=== PATIENT | male | born 1935 | race Caucasian/White ===

== ENCOUNTER → 2017-03-27 | Outpatient (CLI) | payer MEDICARE, OTHER ==
[~2017-03-27] MED LIST: ACE325 PO; AML5 PO; ASCO-178 PO; AZIT-1 PO; CYAN1TAB68 PO; EZET1TAB19 PO; EZET1TAB61 PO; FURO-47 PO; GLUC750T10 PO; HYDR12.561 PO; MULT-1335 PO; PRED20TA6 PO; PROP80TA25 PO; ZINC50TA PO; [UNRECOGNIZED DRUG - CODE] PO; [UNRECOGNIZED DRUG - OTHER] PO
[2017-03-27 14:46] LABS: PLATELET COUNT, AUTOMATED 226 K/uL (150-450)
--- NOTE | 2017-03-27 14:56 | RADIOLOGY IMAGING REPORT ---
FACILITY: [facility] - [place] PATIENT NAME: Chirag Cuello : 1935 MR: [id number] V: [id number] EXAM DATE: ORDERING PHYSICIAN: TERESITA SADLER TECHNOLOGIST: Location: [facility] [place] Patient: Chirag Cuello : 1935 Visit/Account:[id number] Date of Sevice: 03/27/2017 Exam type: CHEST PA AND LAT History: Cough, shortness of breath since Saturday Comparison: None. Findings: There is coarse peribronchial thickening bilaterally. This is particularly prominent in the lower lo bes. No lobar infiltrates are identified. There is no evidence of pleural effusions or overt primar y edema. There is flattening the hemidiaphragms which can be seen with COPD The cardiac silhouette i s normal in size. The left shoulder arthroplasty and moderate spondylotic changes of the thoracic sp ine IMPRESSION: 1. There is coarse peribronchial thickening bilaterally particular prominent in the lower lobes. Th is could represent an acute peribronchial inflammatory process given the clinical history although di fferential diagnosis would include chronic changes as are no prior studies available for comparison Flattening of hemidiaphragms which can be seen with COPD Report Dictated By: Wendy Zimmer MD at 03/27/2017 2:49 PM Report E-Signed By: Wendy Zimmer MD at 03/27/2017 2:51 PM WSN:[email or web address]
== END ==
LOC: LAB 14:25
PROVIDERS: ATTEND Nurse Practitioner Primary Care
DX: R91.8 Other nonspecific abnormal finding of lung field (principal); Z96.612 Presence of left artificial shoulder joint; M47.9 Spondylosis, unspecified; J98.6 Disorders of diaphragm; R05 Cough
CPT/HCPCS: 36415; 71046; 85025

== ENCOUNTER 2017-07-18 14:46 | Emergency (ER) | payer MEDICARE, OTHER ==
--- NOTE | 2017-07-18 14:56 | ER Report ---
History and Physical Time Seen By MD: 14:55 Hx. of Stated Complaint: CUT LEFT THUMB WITH TABLE SAW. HPI/ROS CHIEF COMPLAINT: Left thumb laceration HISTORY OF PRESENT ILLNESS: 81-year-old male patient presents to emergency room with complaint of left thumb laceration. Patient states he was cutting wood using a table saw when his hand slipped, he states he felt that the thumb hit the table of the saw. Patient states that he was using a ripping saw at the time , and at that time was only approximately 1/8 of an inch above the table. He denies any numbness tingling. He states he is able to move his thumb without any difficulties. He is unsure of his last tetanus shot. REVIEW OF SYSTEMS: Respiratory: No cough, no dyspnea. Cardiovascular: No chest pain, no palpitations. Gastrointestinal: No vomiting, no abdominal pain. Musculoskeletal: No back pain. Allergies: Coded Allergies: meperidine (Verified Allergy, Unknown, 07/18/17) Home Meds Active Scripts Cephalexin 500 Mg Tab (KEFLEX 500 MG TAB) 500 Mg Tablet, 500 MG PO Q6H, #20 TAB Prov:BRITTNI CABALLERO [facility] 07/18/17 Prednisone (PREDNISONE) 20 Mg Tablet, 1 TAB PO BID for 5 Days, #10 TAB 0 Refills Prov:TERESITA SADLER DNP, [facility]- 03/27/17 Azithromycin (ZITHROMAX) 250 Mg Tablet, 0 PO QDAY, #6 TAB 0 Refills TAKE 2 TABLETS ON DAY 1 AND 1 TABLET ON DAYS 2-5 Prov:TERESITA SADLER DNP [facility]- 03/27/17 Reported Medications Ezetimibe/Simvastatin (Ezetimibe-Simvastatin 10-40 mg) 10 Mg-40 Mg Tablet, 1 TAB PO QDAY 03/27/17 Hydrochlorothiazide (HYDROCHLOROTHIAZIDE) 12.5 Mg Tablet, 1 TAB PO QDAY, TAB 03/27/17 Cyanocobalamin/Folic Acid (VITAMIN R97-NPANC ACID TABLET) 1 Each Tablet, 1 EACH PO QDAY 03/27/17 Furosemide (FUROSEMIDE) 40 Mg Tablet, 1 TAB PO QDAY, TAB 03/27/17 Amlodipine/Valsartan (EXFORGE 10-320 MG TABLET) 1 Each Tablet, 1 EACH PO 03/27/17 Propranolol Hcl (PROPRANOLOL HCL) 80 Mg Tablet, 80 MG PO DAILY 03/27/17 Multivitamins W-Minerals (Multiple Vitamin) 1 Tab Tablet, 1 TAB PO DAILY 12/03/06 Ascorbic Acid (Vitamin C) 1,000 Mg Tablet, 500 MG PO DAILY 12/03/06 Zinc (Natural Zinc) 50 Mg Tablet, 50 MG PO DAILY 12/03/06 [Trophandil] No Conflict Check, MG PO BID 12/03/06 Past Medical/Surgical History Patient has a past medical history of hypertension. Patient has surgical history of colectomy. Reviewed Nurses Notes: Yes Smoking Status: Former Smoker Constitutional Vital Sign - Last 24 Hours 07/18/17 07/18/17 14:50 15:55 Temp 97.8 Pulse 60 86 Resp 18 18 B/P (MAP) 139/77 132/68 (89) Pulse Ox 89 94 O2 Delivery Room Air Room Air Physical Exam General Appearance: The patient is alert, has no immediate need for airway protection and no current signs of toxicity. Respiratory: Chest is non tender, lungs are clear to auscultation. Cardiac: regular rate and rhythm Gastrointestinal: Abdomen is soft and non tender, no masses, bowel sounds normal. Musculoskeletal: Neck: Neck is supple and non tender. Extremities have full range of motion and are non tender. Skin: No rashes or lesions. Patient has a 4.5 cm laceration to the left thumb, it does go into this subcutaneous tissue. No obvious tendon or ligamentous injury. DIFFERENTIAL DIAGNOSIS: After history and physical exam differential diagnosis was considered for laceration, fracture, open fracture. Medical Decision Making EKG/Imaging Imaging FINGER LEFT THUMB HISTORY: cut in table saw Additional history: None COMPARISON: None. FINDINGS: There is a small shallow defect seen in the ventral skin surface of the left thumb consistent with history of. The underlying bone appears intact. There are no radiopaque foreign bodies identified. Underlying osteoarthritic changes are incidentally noted along the first ray and first carpometacarpal joint. IMPRESSION: Soft tissue laceration of the thumb without evidence of underlying bone involvement or radiopaque foreign bodies. Report Dictated By: Jeramie Kuhn MD at 07/18/2017 3:18 PM Report E-Signed By: Jeramie Kuhn MD at 07/18/2017 3:22 PM ED Course/Re-evaluation ED Course Patient was admitted exam room, history and physical obtained. Differential diagnoses were considered. I examination patient has a 4.5 centimeter laceration to the palmar aspect of the left thumb. There does not appear to be any bony involvement or any tendon injury. X-rays done of the left thumb which showed no acute fractures. I discussed the findings with the patient. The thumb was anesthetized, cleaned and repaired described below. We'll go ahead and discharge patient home at this time. We will place him on antibiotics to help prevent infection especially with this being considered a dirty wound. I discussed the patient who verbalized understanding and agreement. He is to follow-up with his primary care provider in 7-10 days to have sutures removed. He is to monitor for signs of infection. Procedure: Laceration repair. Verbal consent was obtained from the patient. The 4.5 cm laceration on the palmar aspect of the left thumb was anesthetized in the usual fashion. The wound was scrubbed, draped and explored to its base with a gloved finger. There were no deep structures involved. No tendon injury was identified. The wound was repaired with 9 simple interrupted sutures using 5-0 Prolene material. The wound repair was simple. The procedure was performed by myself. Decision to Disposition Date: Jul 18, 2017 Decision to Disposition Time: 15:51 Depart Departure Latest Vital Signs Vital Signs Date Time Temp Pulse Resp B/P (MAP) Pulse Ox O2 Delivery O2 Flow Rate FiO2 07/18/17 15:55 86 18 132/68 (89) 94 Room Air 07/18/17 14:50 97.8 Impression: Primary Impression: Laceration Condition: Improved Disposition: HOME OR SELF-CARE New Scripts Cephalexin 500 Mg Tab (KEFLEX 500 MG TAB) 500 Mg Tablet 500 MG PO Q6H, #20 TAB Prov: BRITTNI CABALLERO 07/18/17 Patient Instructions: Finger Laceration (ED) Additional Instructions: Keep wound dry for 48 hours. Follow up with your primary care provider in the next 7-10 days to have sutures removed. Monitor for signs of infection; redness, swelling, heat, discharge, increasing pain or red streaking. Take Tylenol or Ibuprofen as needed for pain. Return to the ER with any concerns. You may change dressing as needed. BRITTNI CABALLERO Jul 18, 2017 14:56
[2017-07-18] MEDS ORDERED: DIPHTH/TETANUS/ACEL. PERTUSSIS IM ONLY ONE (15:10)
--- NOTE | 2017-07-18 15:26 | RADIOLOGY IMAGING REPORT ---
FACILITY: PATIENT NAME: Chirag Cuello : 1935 MR: [id number] V: [id number] EXAM DATE: ORDERING PHYSICIAN: BRITTNI CABALLERO TECHNOLOGIST: Location: [facility] - [place], [place] Patient: Chirag Cuello : 1935 Visit/Account:[id number] Date of Sevice: 07/18/2017 FINGER LEFT THUMB HISTORY: cut in table saw Additional history: None COMPARISON: None. FINDINGS: There is a small shallow defect seen in the ventral skin surface of the left thumb consistent with hi story of. The underlying bone appears intact. There are no radiopaque foreign bodies identified. U nderlying osteoarthritic changes are incidentally noted along the first ray and first carpometacarpal joint. IMPRESSION: Soft tissue laceration of the thumb without evidence of underlying bone involvement or radiopaque for eign bodies. Report Dictated By: Jeramie Kuhn MD at 07/18/2017 3:18 PM Report E-Signed By: Jeramie Kuhn MD at 07/18/2017 3:22 PM WSN:SALMA
[2017-07-18] MEDS ORDERED: CEPH500T7 PO (15:51)
[2017-07-18 15:55] VITALS: BP 132/68
== END 2017-07-18 16:00 | disposition home or self-care (01) ==
LOC: ER 15:09
DX: S61.012A Laceration without foreign body of left thumb without damage to nail, initial encounter (principal)
CPT/HCPCS: 90471; 90715; 99283

== ENCOUNTER → 2017-10-01 | Outpatient (CLI) | payer MEDICARE, OTHER ==
[~2017-10-01] MED LIST changes: +CEPH500T7 PO
[2017-10-01 11:18] LABS: PLATELET COUNT, AUTOMATED 256 K/uL (150-450)
== END ==
LOC: LAB 11:07
PROVIDERS: ATTEND Orthopaedic Surgery Hand Surgery
DX: M79.89 Other specified soft tissue disorders (principal); M79.605 Pain in left leg
CPT/HCPCS: 36415; 84550; 85025; 85651; 86140

== ENCOUNTER 2018-03-20 16:18 | Emergency (ER) | payer MEDICARE, OTHER ==
[2018-03-20] MEDS ORDERED: VALS320T12 PO (16:32)
[2018-03-20] MEDS ORDERED: EZET1TAB86 PO (16:32)
[2018-03-20] MEDS ORDERED: TOPI-23 PO (16:35)
--- NOTE | 2018-03-20 16:35 | ER Report ---
History and Physical Time Seen By MD: 16:33 Hx. of Stated Complaint: HIGH BLOOD PRESSURE AT HOME - REPORTS ASYMPTOMATIC. HPI/ROS CHIEF COMPLAINT: Hypertension HISTORY OF PRESENT ILLNESS: This is an 82-year-old male presents to the emergency department with his daughter, for hypertension. The patient states that he was at the grocery store today, checked his blood pressure and noted that it was 190 systolic, he was asymptomatic, became concerned and decided to come in for further evaluation. Patient also states that Sanders he did become somewhat lightheaded with positional changes that did resolve rather quickly, he states that he did begin to increase his water intake, the lightheadedness is diminishing. Patient's initial blood pressure was 143/76, heart rate in the low 50s. Patient denies chest pain, shortness of breath, no headaches, no visual disturbances no other complaints. REVIEW OF SYSTEMS: Respiratory: No cough, no dyspnea. Cardiovascular: As above. Gastrointestinal: No vomiting, no abdominal pain. Musculoskeletal: No back pain. Neurological: As above. Allergies: Coded Allergies: meperidine (Verified Allergy, Unknown, 07/18/17) Home Meds Reported Medications Topiramate (TOPIRAMATE) 25 Mg Tablet, 25 MG PO BID 03/20/18 Valsartan (DIOVAN) 320 Mg Tablet, 320 MG PO QDAY 03/20/18 Ezetimibe/Simvastatin (VYTORIN 10-40 MG TABLET) 1 Each Tablet, 1 EACH PO QDAY 03/20/18 Ezetimibe/Simvastatin (Ezetimibe-Simvastatin 10-40 mg) 10 Mg-40 Mg Tablet, 1 TAB PO QDAY 03/27/17 Hydrochlorothiazide (HYDROCHLOROTHIAZIDE) 12.5 Mg Tablet, 1 TAB PO QDAY, TAB 03/27/17 Cyanocobalamin/Folic Acid (VITAMIN D70-GARFY ACID TABLET) 1 Each Tablet, 1 EACH PO QDAY 03/27/17 Furosemide (FUROSEMIDE) 40 Mg Tablet, 1 TAB PO QDAY, TAB 03/27/17 Amlodipine/Valsartan (EXFORGE 10-320 MG TABLET) 1 Each Tablet, 1 EACH PO 03/27/17 Propranolol Hcl (PROPRANOLOL HCL) 80 Mg Tablet, 80 MG PO BID 03/27/17 Discontinued Reported Medications Multivitamins W-Minerals (Multiple Vitamin) 1 Tab Tablet, 1 TAB PO DAILY 12/03/06 Ascorbic Acid (Vitamin C) 1,000 Mg Tablet, 500 MG PO DAILY 12/03/06 Zinc (Natural Zinc) 50 Mg Tablet, 50 MG PO DAILY 12/03/06 [Trophandil] No Conflict Check, MG PO BID 12/03/06 Discontinued Scripts Cephalexin 500 Mg Tab (KEFLEX 500 MG TAB) 500 Mg Tablet, 500 MG PO Q6H, #20 TAB Prov:BRITTNI CABALLERO [facility] 07/18/17 Prednisone (PREDNISONE) 20 Mg Tablet, 1 TAB PO BID for 5 Days, #10 TAB 0 Refills Prov:TERESITA SADLER [facility]- 03/27/17 Azithromycin (ZITHROMAX) 250 Mg Tablet, 0 PO QDAY, #6 TAB 0 Refills TAKE 2 TABLETS ON DAY 1 AND 1 TABLET ON DAYS 2-5 Prov:TERESITA SADLER [facility]- 03/27/17 Past Medical/Surgical History The patient has a past medical and surgical history of hypertension, wears glasses, colectomy. Reviewed Nurses Notes: Yes Smoking Status: Former Smoker Constitutional Vital Sign - Last 24 Hours 03/20/18 03/20/18 03/20/18 03/20/18 16:21 16:25 17:00 17:30 Temp 97.3 Pulse 55 52 49 Resp 20 B/P (MAP) 159/82 159/82 (107) 143/76 (98) Pulse Ox 92 90 90 O2 Delivery Room Air 03/20/18 03/20/18 03/20/18 03/20/18 17:36 17:39 17:41 17:50 B/P (MAP) 130/67 (88) 116/88 (97) 115/75 (88) 130/67 (88) 116/88 (97) 115/75 (88) Physical Exam General Appearance: The patient is alert, has no immediate need for airway protection and no current signs of toxicity. Eyes: Pupils equal and round no injection. Respiratory: Chest is non tender, lungs are clear to auscultation. Cardiac: regular rate and rhythm, no murmurs, clicks or rubs. Gastrointestinal: Abdomen is soft and non tender, no masses, bowel sounds normal. Musculoskeletal: Neck: Neck is supple and non tender. Extremities have full range of motion and are non tender. Skin: No rashes or lesions. DIFFERENTIAL DIAGNOSIS: After history and physical exam differential diagnosis was considered for orthostatic hypotension, hypertension, bradycardia and sy ncope. Medical Decision Making EKG/Imaging EKG Interpretation 12 lead EKG: Time of EKG 1726. Rhythm: Sinus bradycardia, ventricular rate 48 bpm. [place]: normal QRS: normal ST segments: No ST depression or elevation identified. Poor T-wave progression noted in V2 through V6. No previous EKGs for comparison. ED Course/Re-evaluation ED Course The patient was admitted to room. A history and physical were obtained. Differential diagnoses were considered. As the patient was asymptomatic, primarily wanting his blood pressure evaluated, he was noted to have a blood pressure in the 140s over 80s in the emergency department, I did an EKG as he states he's had some lightheadedness over the last couple of days transient typically with positional changes, he is bradycardic, they've noted this at home. Patient has also started to increase his water intake over the last 1-2 days, he states this is helped with some of the lightheadedness as well as his overall well-being. I did orthostatic vital signs, his blood pressure did drop however he was not symptomatic at that time. I suspect that his lightheadedness is secondary to orthostatic hypotension. As he has been bradycardic I did recommend following up with his primary care provider within the next 1-2 weeks for reevaluation and possible adjustment on his blood pressure medications. Patient and his daughter both expressed understanding and the patient was discharged home. Decision to Disposition Date: Mar 20, 2018 Decision to Disposition Time: 17:54 Depart Departure Latest Vital Signs Vital Signs Date Time Temp Pulse Resp B/P (MAP) Pulse Ox O2 Delivery O2 Flow Rate FiO2 03/20/18 17:50 130/67 (88) 116/88 (97) 115/75 (88) 03/20/18 17:30 49 90 03/20/18 16:21 97.3 20 Room Air Impression: Primary Impression: Hypertension Additional Impression: Orthostatic hypotension Condition: Improved Disposition: HOME OR SELF-CARE Patient Instructions: Chronic Hypertension (ED) Additional Instructions: No concerning findings on the EKG today. Your blood pressure did drop and we were performing the orthostatic vital signs. Please call your primary care provider tomorrow and schedule a follow-up appointment within the next 1-2 weeks for reevaluation, and discussion on your blood pressure medications. Be sure to drink plenty of water. Get plenty of rest. Return to the ER for any other concerns or worsening symptoms. Problem Qualifiers Primary Impression: Hypertension Hypertension type: unspecified Qualified Codes: I10 - Essential (primary) hypertension EMBER BAINS GRID TRIMMER-BC Mar 20, 2018 16:35
--- NOTE | 2018-03-20 17:46 | EKG ---
FACILITY: [facility] PATIENT NAME: ANALI PIKE : [id number] MR: [id number] V: [id number] EXAM DATE: ORDERING PHYSICIAN: EMBER BAINS TECHNOLOGIST: AMBER Test Reason : ASHLEIGH Blood Pressure : / mmHG Vent. Rate : 048 BPM Atrial Rate : 048 BPM P-R Int : 160 ms QRS Dur : 092 ms QT Int : 498 ms P-R-T Axes : 049 043 063 degrees QTc Int : 444 ms Marked sinus bradycardia Possible Inferior infarct , age undetermined No ST-T abnormalities No previous ECGs available Confirmed by BRYCE TAYLOR ([id number]) on 03/20/2018 6:41:53 PM Referred By: ARAM Confirmed By:BRYCE TAYLOR
[2018-03-20 17:50] VITALS: BP 115/75
== END 2018-03-20 18:12 | disposition home or self-care (01) ==
LOC: ER 16:29
DX: I10 Essential (primary) hypertension (principal); I95.1 Orthostatic hypotension; R00.1 Bradycardia, unspecified
CPT/HCPCS: 93005; 99283